=== PATIENT | male | born 1995 ===

== ENCOUNTER 2017-03-10 21:21 | Emergency (ER) | payer MEDICAID ==
[2017-03-10 21:22] VITALS: BMI 18.3
[2017-03-10] MEDS ORDERED: Fluorescein 1 mg Ophthalmic Strip ONE (21:41)
[2017-03-10] MEDS ORDERED: Tetracaine 0.5% Ophth (OR ONLY) ONE (21:41)
[2017-03-10 21:45] VITALS: BP 112/67; PULSE 86; RESP 18; TEMP 97.8; O2SAT 99
[2017-03-10] MEDS ORDERED: Tetracaine 0.5% Ophth 2 ML BOTTLE OU ONE (21:48)
[2017-03-10] MEDS ORDERED: Fluorescein 1 mg Ophthalmic Strip OU ONE (21:48)
--- NOTE | 2017-03-10 22:08 | C.PDOC ---
History Of Present Illness A 21 y/o male presents to the ER c/o left eye pain that began yesterday. Pt notes his eye was itching, he scratched it, and felt pain. Pain worsen with opening his eye. Notes no changes in vision but does not have is contacts in. Pt has a Hx of glaucoma and was diagnosed at 16, but has not followed up with a specialist for it but does follow up with his eye doctor regularly. He was most recently seen last month, was told his glaucoma was "borderline" and he needs to see specialist brina. Pt denies fever, chills, change in vision, eye discharge or bleeding, or any other complaints. Time Seen by Provider: 03/10/17 21:48 Chief Complaint (Nursing): Eye Problem History Per: Patient History/Exam Limitations: no limitations Onset/Duration Of Symptoms: Days Current Symptoms Are (Timing): Still Present Severity: Mild Quality: "Pain" Associated Symptoms: Pain. denies: Decreased Vision, Discharge From Eye Recent travel outside of the [place]: No Additional History Per: Patient Past Medical History Reviewed: Historical Data, Nursing Documentation, Vital Signs Vital Signs: Last Vital Signs Temp 97.8 F 03/10/17 21:44 Pulse 86 03/10/17 21:44 Resp 18 03/10/17 21:44 BP 112/67 03/10/17 21:44 Pulse Ox 99 03/11/17 01:44 - Medical History PMH: Asthma, Depression, Kidney Stones, Chronic Kidney Disease Denies: Diabetes, Hepatitis, HIV, HTN, Seizures, Sexually Transmitted Disease Family History: States: Unknown Family Hx - Social History Hx Alcohol Use: Yes Hx Substance Use: Yes (marijuana) Review Of Systems Except As Marked, All Systems Reviewed And Found Negative. Constitutional: Negative for: Fever, Chills Eyes: Positive for: Pain (Left eye). Negative for: Vision Change, Other (Eye discharge or bleeding) Physical Exam - Physical Exam Appears: Well, Non-toxic, No Acute Distress Skin: Normal Color, Warm, Dry Head: Atraumatic, Normacephalic Eye(s): bilateral: PERRL, EOMI, Other (Mild injection to the left eye greater than right. No fluorescence uptake. Extra occular pressure of the right eye 16 of the left eye 26.) Nose: Normal Oral Mucosa: Moist Chest: Symmetrical Respiratory: Normal Breath Sounds, No Accessory Muscle Use, Other (Speaking in full sentences) Neurological/Psych: Oriented x3, Normal Speech, Other (No focal deficit) ED Course And Treatment O2 Sat by Pulse Oximetry: 99 (RA) Pulse Ox Interpretation: Normal Progress Note: Impression: 21 y/o male c/o left eye pain since yesterday. Plans : Fluorescein, Tetracaine, reassess. Discused with Dr. Pacheco who instructs outpatient followup. Pt is in no acute distress at this time. Case discsused with Dr Lee, agreed upon plan and discharge. Disposition - Disposition Referrals: Andi Pacheco MD [Staff Provider] - Disposition: HOME/ ROUTINE Disposition Time: 22:07 Condition: STABLE Additional Instructions: Follow up with your primary medical doctor or clinic in 2-5 days for further evaluation. Take medications as prescribed. Return to the emergency department at any time if symptoms persist or worsen. Prescriptions: Tobramycin 0.3% [Tobramycin 5 Ml] 1 drop OP Q4 #1 bottle Instructions: Corneal Abrasion (ED) Forms: Work Excuse - Clinical Impression Clinical Impression: Corneal abrasion, H/O: glaucoma - Scribe Statement The provider has reviewed the documentation as recorded by the Scribe Olesya [email or web address] All medical record entries made by the Scribe were at my direction and personally dictated by me. I have reviewed the chart and agree that the record accurately reflects my personal performance of the history, physical exam, medical decision making, and the department course for this patient. I have also personally directed, reviewed, and agree with the discharge instructions and disposition.
== END 2017-03-10 23:27 | disposition home or self-care (01) ==
LOC: C.ER 21:21
DX: S05.02XA Injury of conjunctiva and corneal abrasion without foreign body, left eye, initial encounter (principal); X58.XXXA Exposure to other specified factors, initial encounter; Y92.9 Unspecified place or not applicable

== ENCOUNTER 2017-07-02 09:32 | Emergency (ER) | payer MEDICAID ==
[2017-07-02 09:33] VITALS: BMI 18.3
[2017-07-02 09:46] VITALS: TEMP 98; O2SAT 100
[2017-07-02] MEDS ORDERED: Sodium Chloride 0.9% 1,000 ML IV ONE (10:12)
[2017-07-02] MEDS ORDERED: Sodium Chloride 0.9% 1,000 ML ONE (10:24)
[2017-07-02 10:39] LABS: BASO % 0.2 % (0.0-2.0); EOS # 0.1 K/uL (0.0-0.7); EOS % 0.8 % (0.0-4.0); HEMATOCRIT 41.4 % (35.0-51.0); LYMPH # 1.2 K/uL (1.0-4.3); MEAN CELL VOLUME 87.5 fL (80.0-94.0); MEAN CORPUSCULAR HEMOGLOBIN 29.4 pg (27.0-31.0); MEAN CORPUSCULAR HGB CONC 33.6 g/dL (33.0-37.0); MEAN PLATELET VOLUME 8.9 fL (7.2-11.7); MONO # 0.5 K/uL (0.0-0.8); NRBC % 0.1 % (0.0-2.0); WHITE BLOOD COUNT 12.2 K/uL (4.8-10.8)
[2017-07-02 10:46] LABS: CHLORIDE 104 mmol/L (98-107)
[2017-07-02 10:47] LABS: SODIUM 142 mmol/L (132-148)
[2017-07-02 10:49] LABS: ALB/GLOB RATIO 1.4 (1.0-2.1); ALKALINE PHOSPHATASE 66 U/L (38-126); AST/SGOT 23 U/L (17-59); BILIRUBIN,TOTAL 0.6 mg/dL (0.2-1.3); BLOOD UREA NITROGEN 17 mg/dL (9-20); CARBON DIOXIDE 24 mmol/L (22-30); GFR AFRICAN-AMERICAN > 60; TOTAL PROTEIN 7.5 g/dL (6.3-8.3)
[2017-07-02 10:50] LABS: ALT/SGPT 29 U/L (21-72); CALCIUM 9.2 mg/dl (8.6-10.4); GLUCOSE,RANDOM 96 mg/dL (75-110)
[2017-07-02 10:57] LABS: POTASSIUM 4.9 mmol/L (3.6-5.2)
[2017-07-02 11:01] LABS: RBC URINE 1243 /hpf (0-3); URINE BILIRUBIN NEGATIVE (NEGATIVE); URINE BLOOD 3+ (NEGATIVE); URINE COLOR Yellow (YELLOW); URINE GLUCOSE (UA) NORMAL (Normal); URINE KETONE NEGATIVE (NEGATIVE); URINE LEUKOCYTE ESTERASE NEG Leu/uL (Negative); URINE PROTEIN 1+ mg/dL (NEGATIVE); WBC URINE 6 /hpf (0-5)
--- NOTE | 2017-07-02 11:30 | CT ---
CT abdomen and pelvis History: Right flank pain. Comparison: None available. Technique: Multiple contiguous axial images were performed through the abdomen and pelvis without the use of intravenous contrast. Subsequently, sagittal and coronal reformatted images were obtained. Findings: Focal atelectasis seen within the right middle lobe inferiorly. No pleural or pericardial effusion. 5 millimeter hypoechoic foci seen at the dome of the liver, too small to adequately characterize. Gallbladder is preserved. Suggestion of a septation and or fold at the head of the gallbladder. This is best seen on series 3, image 68. This may be better evaluated with ultrasound. Spleen is preserved. Adrenal glands are preserved. Heterogeneous pancreas. Upper abdominal bowel is grossly preserved. Right kidney: Mild fullness and or mild hydronephrosis of the right renal collecting system and ureter. At the level of the distal right ureter, on series 3, image 129, there is a 2-3 millimeter calcific foci which may represent a calculus versus calcified phlebolith. Given the lack of intraperitoneal fat, evaluation at this level is limited. Additional 2 millimeter calculus in the midpole of the right kidney on series 3, image 53. Left kidney: No hydronephrosis. Minimal increased attenuation within renal papillae, nonspecific. Few punctate 1 millimeter nonobstructive calcific foci in the upper and mid poles. Mild to moderately thick-walled urinary bladder. Heterogeneous prostate and seminal vesicles. Under distended rectum. Moderate fecal retention in the colon. Appendix not well visualized on this noncontrast study. If there is concern for acute appendicitis, consider further evaluation with a contrast-enhanced study. No gross findings to suggest acute appendicitis. Few shotty inguinal and para-aortic lymph nodes. Few shotty mesenteric lymph nodes. Osseous structures grossly preserved. Impression: Mild fullness and or mild hydronephrosis of the right renal collecting system and ureter. At the level of the distal right ureter, on series 3, image 129, there is a 2-3 millimeter calcific foci which may represent a calculus versus calcified phlebolith. Given the lack of intraperitoneal fat, evaluation at this level is limited. Additional 2 millimeter calculus in the midpole of the right kidney on series 3, image 53. Clinical correlation. Mild to moderately thick-walled urinary bladder. Clinical correlation. Additional findings as above.
[2017-07-02 11:50] VITALS: BP 114/70; PULSE 60; RESP 16
--- NOTE | 2017-07-02 14:44 | C.PDOC ---
History Of Present Illness 21 y/o male presents to ED for evaluation of right flank and RLQ abdominal pain associated with nausea and vomiting since waking up this morning. Pt states that pain is sharp and constant in nature. Notes that his symptoms feel similar to prior episode of kidney stone. Patient denies diarrhea, dysuria, hematuria , urinary frequency, fever/chills. Time Seen by Provider: 07/02/17 09:45 Chief Complaint (Nursing): Male Genitourinary History Per: Patient History/Exam Limitations: no limitations Onset/Duration Of Symptoms: Hrs Current Symptoms Are (Timing): Still Present Severity: Moderate Location Of Pain/Discomfort: RLQ, Other (right flank) Radiation Of Pain To:: Flank (right) Quality Of Discomfort: "Pain" Associated Symptoms: Nausea, Vomiting, Back Pain (right flank). denies: Diarrhea, Loss Of Appetite, Chest Pain, Constipation, Urinary Symptoms Exacerbating Factors: None Alleviating Factors: None Additional History Per: Patient Past Medical History Reviewed: Historical Data, Nursing Documentation, Vital Signs Vital Signs: Last Vital Signs Temp 98 F 07/02/17 09:45 Pulse 60 07/02/17 11:50 Resp 16 07/02/17 11:50 BP 114/70 07/02/17 11:50 Pulse Ox 100 07/02/17 14:48 - Medical History PMH: Asthma, Depression, Kidney Stones, Chronic Kidney Disease Family History: States: No Known Family Hx - Social History Hx Alcohol Use: Yes Hx Substance Use: No (marijuana) - Immunization History Hx Tetanus Toxoid Vaccination: No Hx Influenza Vaccination: No Hx Pneumococcal Vaccination: No Review Of Systems Except As Marked, All Systems Reviewed And Found Negative. Constitutional: Negative for: Fever, Chills Cardiovascular: Negative for: Chest Pain, Palpitations Respiratory: Negative for: Cough, Shortness of Breath Gastrointestinal: Positive for: Nausea, Vomiting, Abdominal Pain (RLQ). Negative for: Diarrhea Genitourinary: Negative for: Dysuria, Hematuria, Penile Discharge, Scrotal Pain , Penile Pain Musculoskeletal: Positive for: Back Pain (right flank pain) Skin: Negative for: Rash, Bruising Physical Exam - Physical Exam Appears: Well, Non-toxic, Other (in mild pain) Skin: Warm, Dry, No Rash Eye(s): bilateral: Normal Inspection Oral Mucosa: Moist Neck: Supple Cardiovascular: Rhythm Regular Respiratory: Normal Breath Sounds, No Rales, No Rhonchi, No Wheezing Gastrointestinal/Abdominal: Bowel Sounds, Soft, Tenderness (RLQ mild TTP, (-) Rovsing's), No Guarding, No Rebound Back: CVA Tenderness (right), No Vertebral Tenderness Neurological/Psych: Oriented x3 ED Course And Treatment - Laboratory Results Result Diagrams: 07/02/17 10:35 07/02/17 10:35 O2 Sat by Pulse Oximetry: 100 (on RA) Pulse Ox Interpretation: Normal - CT Scan/US Abd & Pelvis CT Other Rad Studies (CT/US): Read By Radiologist, Radiology Report Reviewed CT/US Interpretation: Accession No. : [id number]. Patient Name / ID : INA [id number] / [id number]. Exam Date : 07/02/2017 10:57:22 ( Approved ). Study Comment : Sex / Age : M / 21Y. Creator : Jarvis Ramon MD. Dictator : Jarvis Ramon MD. [employer] Investigator : Farm Crew Member : Jarvis Ramon MD. Approver2 : Report Date : 07/02/2017 11:28:25. My Comment : . CT abdomen and pelvis. History: Right flank pain. Comparison: None available. Technique: Multiple contiguous axial images were performed through the abdomen and pelvis without the use of intravenous contrast. Subsequently, sagittal and coronal reformatted images were obtained. Findings: Focal atelectasis seen within the right middle lobe inferiorly. No pleural or pericardial effusion. 5 millimeter hypoechoic foci seen at the dome of the liver, too small to adequately characterize. Gallbladder is preserved. Suggestion of a septation and or fold at the head of the gallbladder. This is best seen on series 3, image 68. This may be better evaluated with ultrasound. Spleen is preserved. Adrenal glands are preserved. Heterogeneous pancreas. Upper abdominal bowel is grossly preserved. Right kidney: Mild fullness and or mild hydronephrosis of the right renal collecting system and ureter. At the level of the distal right ureter, on series 3, image 129, there is a 2-3 millimeter calcific foci which may represent a calculus versus calcified phlebolith. Given the lack of intraperitoneal fat, evaluation at this level is limited. Additional 2 millimeter calculus in the midpole of the right kidney on series 3, image 53. Left kidney: No hydronephrosis. Minimal increased attenuation within renal papillae, nonspecific. Few punctate 1 millimeter nonobstructive calcific foci in the upper and mid poles. Mild to moderately thick-walled urinary bladder. Heterogeneous prostate and seminal vesicles. Under distended rectum. Moderate fecal retention in the colon. Appendix not well visualized on this noncontrast study. If there is concern for acute appendicitis, consider further evaluation with a contrast-enhanced study. No gross findings to suggest acute appendicitis. Few shotty inguinal and para-aortic lymph nodes. Few shotty mesenteric lymph nodes. Osseous structures grossly preserved. Impression: Mild fullness and or mild hydronephrosis of the right renal collecting system and ureter. At the level of the distal right ureter, on series 3, image 129, there is a 2-3 millimeter calcific foci which may represent a calculus versus calcified phlebolith. Given the lack of intraperitoneal fat, evaluation at this level is limited. Additional 2 millimeter calculus in the midpole of the right kidney on series 3, image 53. Clinical correlation. Mild to moderately thick- walled urinary bladder. Clinical correlation. Additional findings as above. Progress Note: Blood work, UA, CT scan Abd & pelvis ordered and reviewed. Patient given IV NS bolus, IV Toradol. Reevaluation Time: 11:45 Reassessment Condition: Improved (On reassessment, patient is resting comfortably and states his pain has resolved and he feels better. On exam, abdomen is soft and nontender. CT scan shows 2-3mm stone in right distal ureter. Patient is well appearing, afebrile and UA (-) for UTI. He is comfortable being discharged home - given Rxs for Flomax and Vicodin. Patient instructed to follow up with urology within 1 week, and he understands he should return to ED if symptoms persist/worsen.) Disposition Counseled Patient/Family Regarding: Studies Performed, Diagnosis, Need For Followup, Rx Given - Disposition Referrals: Raman Duong MD [Staff Provider] - Disposition: HOME/ ROUTINE Disposition Time: 11:50 Condition: STABLE Additional Instructions: FOLLOW UP WITH UROLOGY WITHIN 1 WEEK DRINK PLENTY OF WATER/FLUIDS USE MEDICATIONS DIRECTED RETURN TO ER IF SYMPTOMS WORSEN Prescriptions: Hydrocodone/Acetaminophen [Hydrocodon-Acetaminophen 5-325] 1 each PO Q6 PRN #15 tablet PRN Reason: Pain, Moderate (4-7) Tamsulosin [Flomax] 0.4 mg PO DAILY #5 cap Instructions: Kidney Stones (ED), Renal Colic (ED), How to Strain Your Urine ( ED) Forms: [employer] (Kyrgyz) Print Language: SYRIAC - Clinical Impression Clinical Impression: Renal colic, Kidney stone - Scribe Statement The provider has reviewed the documentation as recorded by the Scribe Ramiro Johnson All medical record entries made by the Sanazibcamilo were at my direction and personally dictated by me. I have reviewed the chart and agree that the record accurately reflects my personal performance of the history, physical exam, medical decision making, and the department course for this patient. I have also personally directed, reviewed, and agree with the discharge instructions and disposition.
== END 2017-07-02 11:55 | disposition home or self-care (01) ==
LOC: C.ER 09:32
DX: N13.2 Hydronephrosis with renal and ureteral calculous obstruction (principal); Z87.442 Personal history of urinary calculi
CPT/HCPCS: 74176; 80053; 81001; 83690; 85025; 87086; 96361; 96374; 99285; J1885; J7040

== ENCOUNTER 2017-07-06 10:03 | Emergency (ER) | payer MEDICAID ==
[2017-07-06 10:03] VITALS: BMI 18.3
[2017-07-06 10:17] VITALS: TEMP 97.7; O2SAT 100
[2017-07-06] MEDS ORDERED: Sodium Chloride 0.9% 1,000 ML IV ONE (10:40)
--- NOTE | 2017-07-06 10:40 | C.PDOC ---
History Of Present Illness 21 y/o male presents to ED with complaints of recurrent right flank pain since this morning. Patient was seen on 07/02 for same symptoms and diagnosed with ureteral stone. Patient states pain initially resolved but never passed stone and reports nausea. Patient is compliant with medication, finished pain medication and Flomax. No other complaints at this time CO RECUR R FLANK PAIN THIS MORNING. SEEN 07/02 FOR SAME, +URETERAL STONE. PS PAIN INITIALLY RESOLVED, NEVER PASSED STONE. +NAUSEA. COMPLIANT W MEDS, FINISHED PAIN MEDS AND FLOMAX EXAM MILD DIST NONTOXIC NO CVAT ABD NEG REMAINDER NEG Time Seen by Provider: 07/06/17 10:24 Chief Complaint (Nursing): Back Pain History Per: Patient History/Exam Limitations: no limitations Onset/Duration Of Symptoms: Days Current Symptoms Are (Timing): Still Present Quality Of Discomfort: "Pain" Associated Symptoms: Nausea Past Medical History Reviewed: Historical Data, Nursing Documentation, Vital Signs Vital Signs: Last Vital Signs Temp 97.7 F 07/06/17 10:15 Pulse 56 L 07/06/17 10:15 Resp 20 07/06/17 10:15 BP 107/69 07/06/17 10:15 Pulse Ox 100 07/06/17 11:27 - Medical History PMH: Asthma, Depression, Kidney Stones, Chronic Kidney Disease Surgical History: No Surg Hx Family History: States: No Known Family Hx - Social History Hx Alcohol Use: Yes Hx Substance Use: No (marijuana) - Immunization History Hx Tetanus Toxoid Vaccination: No Hx Influenza Vaccination: No Hx Pneumococcal Vaccination: No Review Of Systems Except As Marked, All Systems Reviewed And Found Negative. Constitutional: Negative for: Fever, Chills Gastrointestinal: Positive for: Nausea. Negative for: Vomiting, Diarrhea Musculoskeletal: Positive for: Other (Flank pain) Skin: Negative for: Rash Neurological: Negative for: Weakness, Numbness Physical Exam - Physical Exam Appears: Non-toxic, Other (Mild distress) Skin: Normal Color, Warm, Dry, No Rash Head: Atraumatic, Normacephalic Oral Mucosa: Moist Neck: Normal ROM, Supple Chest: Symmetrical Cardiovascular: Rhythm Regular, No Murmur Respiratory: Normal Breath Sounds, No Rales, No Rhonchi, No Wheezing Gastrointestinal/Abdominal: Soft, No Tenderness, No Guarding, No Rebound Back: No CVA Tenderness Extremity: Normal ROM, Capillary Refill (<2 seconds) Neurological/Psych: Oriented x3 ED Course And Treatment - Laboratory Results Result Diagrams: 07/06/17 11:03 07/06/17 11:03 O2 Sat by Pulse Oximetry: 100 (RA) Pulse Ox Interpretation: Normal Progress - Re-Evaluation Re-evaluation Note: 07/06/17 12:50 PS FEELS BETTER. APPEARS COMFORTABLE. VSS.ADVISED FU - Data Reviewed Data Reviewed: Lab, Diagnostic imaging, Old records Disposition Counseled Patient/Family Regarding: Studies Performed, Diagnosis, Need For Followup, Rx Given - Disposition Referrals: Raman Duong MD [Staff Provider] - Disposition: HOME/ ROUTINE Disposition Time: 12:53 Condition: IMPROVED Prescriptions: Ibuprofen [Motrin] 600 mg PO Q6 #30 tab Ondansetron [Zofran Odt] 4 mg PO TID PRN #9 odt PRN Reason: Nausea/Vomiting oxyCODONE/Acetaminophen [Percocet 5/325 mg Tab] 1 tab PO QID PRN #14 tab PRN Reason: Pain Tamsulosin [Flomax] 0.4 mg PO DAILY #14 cap Instructions: Renal Colic (ED) Forms: [facility] (Portuguese), Work Excuse, [employer] (Ghanaian) - Clinical Impression Clinical Impression: Renal colic - 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 - Scribe Statement The provider has reviewed the documentation as recorded by the Sanazibcamilo Driscoll All medical record entries made by the Sanazibcamilo were at my direction and personally dictated by me. I have reviewed the chart and agree that the record accurately reflects my personal performance of the history, physical exam, medical decision making, and the department course for this patient. I have also personally directed, reviewed, and agree with the discharge instructions and disposition.
[2017-07-06] MEDS ORDERED: Lidocaine 95 MG in Sodium Chloride 0.9% 100 ML IV STA (10:41)
[2017-07-06 11:06] LABS: BASO % 0.1 % (0.0-2.0); EOS # 0.2 K/uL (0.0-0.7); EOS % 1.6 % (0.0-4.0); HEMATOCRIT 38.9 % (35.0-51.0); LYMPH # 1.2 K/uL (1.0-4.3); MEAN CELL VOLUME 86.7 fL (80.0-94.0); MEAN CORPUSCULAR HEMOGLOBIN 29.6 pg (27.0-31.0); MEAN CORPUSCULAR HGB CONC 34.1 g/dL (33.0-37.0); MEAN PLATELET VOLUME 8.2 fL (7.2-11.7); MONO # 0.6 K/uL (0.0-0.8); MONO % 6.3 % (0.0-10.0); RED CELL DISTRIBUTION WIDTH 12.7 % (11.5-14.5); WHITE BLOOD COUNT 9.3 K/uL (4.8-10.8)
[2017-07-06 11:11] LABS: RBC URINE 17 /hpf (0-3); URINE BACTERIA RARE (<OCC); URINE BILIRUBIN NEGATIVE (NEGATIVE); URINE BLOOD 1+ (NEGATIVE); URINE COLOR Yellow (YELLOW); URINE GLUCOSE (UA) NORMAL (Normal); URINE KETONE 1+ mg/dL (NEGATIVE); URINE LEUKOCYTE ESTERASE NEG Leu/uL (Negative); URINE PROTEIN 1+ mg/dL (NEGATIVE); WBC URINE 1 /hpf (0-5)
[2017-07-06 11:15] LABS: CHLORIDE 101 mmol/L (98-107)
[2017-07-06 11:16] LABS: POTASSIUM 3.7 mmol/L (3.6-5.2); SODIUM 139 mmol/L (132-148)
[2017-07-06 11:18] LABS: GFR AFRICAN-AMERICAN > 60
[2017-07-06 11:19] LABS: BLOOD UREA NITROGEN 17 mg/dL (9-20); CALCIUM 8.9 mg/dl (8.6-10.4); CARBON DIOXIDE 23 mmol/L (22-30); GLUCOSE,RANDOM 103 mg/dL (75-110)
[2017-07-06] MEDS ORDERED: Sodium Chloride 0.9% 1,000 ML ONE (11:35)
--- NOTE | 2017-07-06 12:10 | CT ---
PROCEDURE: CT Abdomen and Pelvis without intravenous contrast HISTORY: RECUR R FLANK PAIN COMPARE W CT 07/02 COMPARISON: Comparison is made to the previous study dated 07/02/2017 TECHNIQUE: Axial and reformatted coronal and sagittal CT images of the abdomen and pelvis were obtained without IV or oral contrast administration.. Contrast Dose: 0 Radiation dose: Total exam DLP = 304.88 mGy-cm. This CT exam was performed using one or more of the following dose reduction techniques: Automated exposure control, adjustment of the mA and/or kV according to patient size, and/or use of iterative reconstruction technique. FINDINGS: LOWER THORAX: Unremarkable. LIVER: Unremarkable. No gross lesion or ductal dilatation. GALLBLADDER AND BILE DUCTS: Unremarkable. PANCREAS: Unremarkable. No gross lesion or ductal dilatation. SPLEEN: Unremarkable. ADRENALS: Unremarkable. No mass. KIDNEYS AND URETERS: Again seen is mild right hydronephrosis. There is 2 millimeter nonobstructing calculus at the mid to lower pole of the right kidney. The right ureter is mildly dilated. The left kidney is grossly unremarkable. Again seen is 3.2 millimeter calcification in the pelvis to the right of the midline may represent fluid pellets or less likely distal right ureter stone. VASCULATURE: Unremarkable. No aortic aneurysm. BOWEL: Unremarkable. No obstruction. No gross mural thickening. APPENDIX: Unremarkable. Normal appendix. PERITONEUM: Unremarkable. No free fluid. No free air. LYMPH NODES: Unremarkable. No enlarged lymph nodes. BLADDER: Unremarkable. REPRODUCTIVE: Unremarkable. BONES: No acute fracture. OTHER FINDINGS: None. IMPRESSION: Re- demonstration of mild right hydronephrosis. Re- demonstration of small calcification in the right pelvis may represent phleboliths versus less likely right distal ureteral stone. No significant interval change when compared to the previous exam.No other acute pathology in the abdomen and pelvis noted in this noncontrast study.
[2017-07-06 12:58] VITALS: BP 100/56; PULSE 58; RESP 12
== END 2017-07-06 13:25 | disposition home or self-care (01) ==
LOC: C.ER 10:03
DX: N13.2 Hydronephrosis with renal and ureteral calculous obstruction (principal); Z87.442 Personal history of urinary calculi
CPT/HCPCS: 74176; 80048; 81001; 85025; 96361; 96374; 99284; J1885; J2001; J7040

== ENCOUNTER 2017-09-18 17:57 | Emergency (ER) | payer MEDICAID ==
[2017-09-18 17:57] VITALS: BMI 18.3
[2017-09-18] MEDS ORDERED: Sodium Chloride 0.9% 1,000 ML IV ONE (18:41)
[2017-09-18 19:08] LABS: BASO % 0.4 % (0.0-2.0); EOS # 0.1 K/uL (0.0-0.7); EOS % 1.3 % (0.0-4.0); HEMATOCRIT 42.4 % (35.0-51.0); LYMPH # 2.9 K/uL (1.0-4.3); LYMPH % 33.3 % (20.0-40.0); MEAN CORPUSCULAR HEMOGLOBIN 29.4 pg (27.0-31.0); MEAN CORPUSCULAR HGB CONC 34.2 g/dL (33.0-37.0); MEAN PLATELET VOLUME 7.7 fL (7.2-11.7); MONO # 0.6 K/uL (0.0-0.8); RED CELL DISTRIBUTION WIDTH 13.3 % (11.5-14.5); WHITE BLOOD COUNT 8.8 K/uL (4.8-10.8)
[2017-09-18] MEDS ORDERED: Sodium Chloride 0.9% 1,000 ML ONE (19:09)
[2017-09-18 19:18] LABS: INR 1.1
[2017-09-18 19:23] LABS: ALB/GLOB RATIO 1.3 (1.0-2.1); ALCOHOL SERUM < 10 mg/dl (0-10); ALKALINE PHOSPHATASE 66 U/L (38-126); ALT/SGPT 38 U/L (21-72); AST/SGOT 26 U/L (17-59); BILIRUBIN,TOTAL 0.5 mg/dL (0.2-1.3); BLOOD UREA NITROGEN 7 mg/dL (9-20); CALCIUM 8.9 mg/dl (8.6-10.4); CARBON DIOXIDE 30 mmol/L (22-30); CHLORIDE 99 mmol/L (98-107); GFR AFRICAN-AMERICAN > 60; GLUCOSE,RANDOM 99 mg/dL (75-110); POTASSIUM 3.1 mmol/L (3.6-5.2); SODIUM 139 mmol/L (132-148); TOTAL PROTEIN 7.6 g/dL (6.3-8.3)
[2017-09-18] MEDS ORDERED: Potassium Chloride 20 mEq ER Tab PO STA (20:52)
--- NOTE | 2017-09-18 20:52 | C.PDOC ---
Time Seen by Provider: 09/18/17 18:07 Chief Complaint (Nursing): Flu-like Symptoms History Per: Patient Onset/Duration Of Symptoms: Days (2) Current Symptoms Are (Timing): Still Present Associated Symptoms: Sore Throat, Cough, Nasal Congestion, Nausea, Vomiting Severity: Moderate Recent travel outside of the [place]: No Additional History Per: Prior Records Past Medical History Reviewed: Historical Data, Nursing Documentation, Vital Signs Vital Signs: Last Vital Signs Temp 98.7 F 09/18/17 20:55 Pulse 94 H 09/18/17 20:55 Resp 18 09/18/17 20:55 BP 121/77 09/18/17 20:55 Pulse Ox 96 09/18/17 20:55 - Medical History PMH: Asthma, Depression, Kidney Stones Surgical History: No Surg Hx Family History: States: Unknown Family Hx - Social History Hx Alcohol Use: Yes Hx Substance Use: No - Immunization History Hx Tetanus Toxoid Vaccination: No Hx Influenza Vaccination: No Hx Pneumococcal Vaccination: No Review Of Systems Except As Marked, All Systems Reviewed And Found Negative. Constitutional: Negative for: Fever ENT: Positive for: Nose Congestion, Other (Epistaxis?) Cardiovascular: Negative for: Chest Pain Respiratory: Negative for: Shortness of Breath Gastrointestinal: Positive for: Hematemesis (?) Genitourinary: Negative for: Dysuria Musculoskeletal: Negative for: Neck Pain, Back Pain Skin: Negative for: Rash Neurological: Positive for: Headache. Negative for: Weakness, Numbness, Seizures, Altered Mental Status Physical Exam - Physical Exam Appears: Non-toxic, No Acute Distress Skin: Normal Color, Warm, Dry, No Rash Head: Atraumatic, Normacephalic Eye(s): bilateral: Normal Inspection, PERRL, EOMI Throat: Erythema, No Exudate, No Drooling, No Mass Neck: Normal ROM, Supple Cardiovascular: Rhythm Regular Respiratory: Normal Breath Sounds, No Accessory Muscle Use Gastrointestinal/Abdominal: Soft, No Tenderness Back: No CVA Tenderness Extremity: Normal ROM Neurological/Psych: Oriented x3, Normal Motor, Normal Sensation ED Course And Treatment - Laboratory Results Result Diagrams: 09/18/17 19:05 09/18/17 19:05 Lab Interpretation: No Acute Changes O2 Sat by Pulse Oximetry: 99 Pulse Ox Interpretation: Normal - Radiology CXR: Interpreted by Me, Viewed By Me CXR Interpretation: Yes: No Acute Disease Disposition Counseled Patient/Family Regarding: Studies Performed, Diagnosis, Need For Followup, Rx Given - Disposition Referrals: Pepper Turner MD [Non-Staff] - Disposition: HOME/ ROUTINE Disposition Time: 21:12 Condition: IMPROVED Additional Instructions: Follow up with your doctor within 2-3 days. Return to the ER if you develop shortness of breath, worsening of symptoms or if you have any other concerns. Prescriptions: Benzonatate 200 mg PO TID PRN #15 capsule PRN Reason: Cough Famotidine [Pepcid] 20 mg PO BID #30 tab Instructions: Cold Symptoms (ED) Forms: [employer] [facility] (Martiniquais) - Clinical Impression Clinical Impression: Influenza-like illness
[2017-09-18 20:55] VITALS: BP 121/77; PULSE 94; RESP 18; TEMP 98.7
[2017-09-18 21:08] LABS: RBC URINE 59 /hpf (0-3); URINE BACTERIA RARE (<OCC); URINE BILIRUBIN NEGATIVE (NEGATIVE); URINE COLOR Yellow (YELLOW); URINE GLUCOSE (UA) NORMAL (Normal); URINE KETONE TRACE mg/dL (NEGATIVE); URINE LEUKOCYTE ESTERASE NEG Leu/uL (Negative); URINE PROTEIN NEGATIVE (NEGATIVE); URINE UROBILINOGEN NORMAL mg/dL (0.2-1.0); WBC URINE 1 /hpf (0-5)
[2017-09-18 21:09] LABS: URINE BLOOD 2+ (NEGATIVE)
[2017-09-18 21:14] VITALS: O2SAT 99
[2017-09-18] MEDS ORDERED: Potassium Chloride 20 mEq ER Tab PO ONE (21:31)
--- NOTE | 2017-09-19 08:58 | RAD ---
HISTORY: COMPARISON: No prior. TECHNIQUE: Chest PA and lateral FINDINGS: LINES AND TUBES: None. LUNG AND PLEURA: There is pulmonary hyperinflation. The lungs are clear without focal consolidation. HEART AND MEDIASTINUM: The heart is not enlarged. The hilar and mediastinal contours are within normal limits. SKELETAL STRUCTURES: The bony structures are within normal limits for the patient's age. VISUALIZED UPPER ABDOMEN: Normal. OTHER FINDINGS: None. IMPRESSION: Pulmonary hyperinflation. No focal consolidation.
== END 2017-09-18 21:32 | disposition home or self-care (01) ==
LOC: C.ER 17:57
DX: J11.1 Influenza due to unidentified influenza virus with other respiratory manifestations (principal); E87.6 Hypokalemia
CPT/HCPCS: 71020; 80053; 80320; 80324; 80345; 80346; 80349; 80353; 80358; 80361; 81001; 83690; 83992; 85025; 85610; 85730; 87804; 96361; 96374; 96375; 99284; C9113; J2765; J7040

== ENCOUNTER 2017-12-13 17:43 | Emergency (ER) | payer MEDICAID ==
[2017-12-13 17:43] VITALS: BMI 18.3
[2017-12-13 18:01] VITALS: BP 119/62; PULSE 109; RESP 18; TEMP 97.9; O2SAT 97
[2017-12-13] MEDS ORDERED: Bacitracin 500 Units/gm Oint Foilpak UD TOP ONE (18:40)
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
[2017-12-13] MEDS ORDERED: Bacitracin 500 Units/gm Oint Foilpak UD ONE (18:45)
== END 2017-12-13 18:47 | disposition home or self-care (01) ==
LOC: C.ER 17:43
DX: S61.011A Laceration without foreign body of right thumb without damage to nail, initial encounter (principal); X99.1XXA Assault by knife, initial encounter

== ENCOUNTER 2018-02-28 13:04 | Emergency (ER) | payer MEDICAID ==
[2018-02-28 13:04] VITALS: BMI 18.3
[2018-02-28 13:15] VITALS: RESP 18; TEMP 97.6
--- NOTE | 2018-02-28 14:22 | C.PDOC ---
History Of Present Illness 22 year old male with PMHx of kidney stones presents to the ED for evaluation of a feeling like a tooth broke in the right lower mouth that started yesterday. Patient states he noticed pain and swelling today. Patient is also c/ o right lower back pain, he states felt like his back was "swollen" pain worsens with movement. Patient denies fever, chills, nausea, vomit, diarrhea, rash, weakness, numbness. Time Seen by Provider: 02/28/18 13:34 Chief Complaint (Nursing): Dental Pain History Per: Patient History/Exam Limitations: no limitations Onset/Duration Of Symptoms: Days Current Symptoms Are (Timing): Still Present Quality: Positive for: "Pain" Recent travel outside of the [place]: No Additional History Per: Patient Past Medical History Reviewed: Historical Data, Nursing Documentation, Vital Signs Vital Signs: Last Vital Signs Temp 97.6 F 02/28/18 13:12 Pulse 82 02/28/18 13:12 Resp 18 02/28/18 13:12 BP Pulse Ox 100 02/28/18 15:21 - Medical History PMH: Asthma, Depression, Kidney Stones, Chronic Kidney Disease Denies: HIV, HTN, Seizures, Sexually Transmitted Disease Surgical History: No Surg Hx Family History: States: Unknown Family Hx - Social History Hx Alcohol Use: No Hx Substance Use: No - Immunization History Hx Tetanus Toxoid Vaccination: Yes (at 16 y.o.) Hx Influenza Vaccination: No Hx Pneumococcal Vaccination: No Review Of Systems Constitutional: Negative for: Fever, Chills ENT: Positive for: Mouth Pain, Mouth Swelling Respiratory: Negative for: Cough, Shortness of Breath Gastrointestinal: Negative for: Nausea, Vomiting, Abdominal Pain Musculoskeletal: Positive for: Back Pain Skin: Negative for: Rash Neurological: Negative for: Weakness, Numbness Physical Exam - Physical Exam Appears: Non-toxic, No Acute Distress Skin: Normal Color, Warm, Dry Head: Atraumatic, Normacephalic, Swelling (right facial) Eye(s): bilateral: Normal Inspection Nose: No Discharge Oral Mucosa: Moist Teeth: Tender To Palpation (2nd biscuspid, 1st and 2nd moalr on right side ) Gingiva: No Bleeding Neck: Normal ROM, Supple Back: No CVA Tenderness, Muscle Spasm (right paralumbar ), Paraspinal Tenderness (right sided) Extremity: Normal ROM, No Tenderness, No Swelling Neurological/Psych: Oriented x3, Normal Speech Gait: Steady ED Course And Treatment - Laboratory Results Result Diagrams: 02/28/18 14:32 02/28/18 14:32 O2 Sat by Pulse Oximetry: 100 (On RA) Pulse Ox Interpretation: Normal Medical Decision Making Medical Decision Making: Plan: * Labs * Amoxicillin 500 mg PO * Tylenol 975 mg PO pt with hx of ? kdney probllems- labs nl. d/c with nsaids. amox and dental f/u [facility]. Disposition Counseled Patient/Family Regarding: Diagnosis, Need For Followup, Rx Given - Disposition Referrals: [facility] [Outside] Disposition: HOME/ ROUTINE Disposition Time: 15:36 Condition: GOOD Additional Instructions: Please apply cold compresses to right side face several times a day to help decrease swelling. Take ibuprofen for pain. Follow up with a dentist as soon as possible. Follow up in medical clinic as well for back pain Forms: [employer] (Chinese) - PA / CANE BURNER / Resident Statement MD/DO has reviewed & agrees with the documentation as recorded. - Scribe Statement The provider has reviewed the documentation as recorded by the Scribe Jamie Archuleta All medical record entries made by the Scribcamilo were at my direction and personally dictated by me. I have reviewed the chart and agree that the record accurately reflects my personal performance of the history, physical exam, medical decision making, and the department course for this patient. I have also personally directed, reviewed, and agree with the discharge instructions and disposition.
[2018-02-28 14:43] LABS: BASO % 0.5 % (0.0-2.0); EOS # 0.5 K/uL (0.0-0.7); EOS % 5.1 % (0.0-4.0); HEMOGLOBIN 14.4 g/dL (12.0-18.0); LYMPH # 1.8 K/uL (1.0-4.3); LYMPH % 19.2 % (20.0-40.0); MEAN CELL VOLUME 88.5 fL (80.0-94.0); MEAN CORPUSCULAR HEMOGLOBIN 30.5 pg (27.0-31.0); MEAN CORPUSCULAR HGB CONC 34.4 g/dL (33.0-37.0); MEAN PLATELET VOLUME 8.9 fL (7.2-11.7); MONO # 0.7 K/uL (0.0-0.8); MONO % 6.9 % (0.0-10.0); NEUT # 6.5 K/uL (1.8-7.0); NEUT % 68.3 % (50.0-75.0); RBC 4.73 Mil/uL (4.40-5.90); RED CELL DISTRIBUTION WIDTH 13.7 % (11.5-14.5); WHITE BLOOD COUNT 9.6 K/uL (4.8-10.8)
[2018-02-28 15:00] LABS: ALB/GLOB RATIO 1.2 (1.0-2.1); ALBUMIN 3.6 g/dL (3.5-5.0); ALT/SGPT 39 U/L (21-72); BLOOD UREA NITROGEN 11 mg/dL (9-20); GFR AFRICAN-AMERICAN > 60; GFR NON-AFRICAN AMERICAN > 60
[2018-02-28 15:16] LABS: AST/SGOT 42 U/L (17-59); CALCIUM 9.4 mg/dl (8.6-10.4)
[2018-02-28 15:45] VITALS: BP 116/71; PULSE 71; O2SAT 98
== END 2018-02-28 15:45 | disposition home or self-care (01) ==
LOC: C.ER 13:04
DX: K04.7 Periapical abscess without sinus (principal)